=== PATIENT | female | born 1970 | race Two or more races ===

== ENCOUNTER 2024-11-11 10:52 | Emergency (ER) | payer SELFPAY ==
[2024-11-11 10:54] VITALS: BMI 32.0
[2024-11-11 11:08] VITALS: BP 161/100; PULSE 112; RESP 20; TEMP 37.8; O2SAT 98
--- NOTE | 2024-11-11 11:14 | XR_ITS ---
Examination: CT abdomen and pelvis without contrast. Coronal 3-D reconstructions. Sagittal 2-D reconstructions. Date and time of exam:25, 1133 hrs. Indications: Left flank pain 5 days, painful urination 2 days. CTDI: vol (mGy): 10.5. DLP: (mGycm): 584. Technique: Axial images of the abdomen have been obtained, 3 mm slice thickness Intravenous contrast material has not been administered. Low dose protocols were performed. One or more of the following dose reduction techniques were used; automated exposure control, adjustment of the mA and/or KV according to patient size, use of iterative reconstruction technique. Findings: Diffuse fatty infiltration throughout the liver, moderate hepatomegaly. Gallstones, gallbladder wall does not appear thickened Spleen is not enlarged. No pancreatic or adrenal mass. Minimal left hydronephrosis, no ureteral calculi Aorta normal size. Normal appendix No pelvic mass Urinary bladder wall thickening up to 5 mm Impression: Findings most consistent with left pyelonephritis and cystitis
--- NOTE | 2024-11-11 11:15 | EDRME_ITS ---
Rapid Medical Screening Exam RME Arrival date/time: 11/11/24 10:52 54-year-old female with no known medical history presents to the emergency room with a chief complaint of fever, vomiting, left-sided flank pain and dysuria x 5 days I have greeted and performed a focused initial assessment of this patient. A com prehensive ED assessment and evaluation of the patient, analysis of all test results, and completion of the medical decision making process will be conducted by additional ED providers. Chief Complaint: General Adult/Misc Complain Time Seen by Provider: 11/11/24 11:11 Vital signs: Vital Signs Temperature 100.1 F 11/11/24 11:08 Pulse Rate 112 H 11/11/24 11:08 Respiratory Rate 20 11/11/24 11:08 Blood Pressure 161/100 H 11/11/24 11:08 Pulse Oximetry (%) 98 11/11/24 11:08 Oxygen Delivery Method Room Air 11/11/24 11:08 Vital signs reviewed by provider: Yes
[2024-11-11] MEDS: HYDROcodone/APAP 5/325 TABLET 1 TAB PO (11:21)
[2024-11-11] MEDS: IBUPROFEN TAB 400 MG TABLET 800 MG PO (11:21)
[2024-11-11] MEDS: ONDANSETRON ODT 4 MG TABRAP PO (11:22)
[2024-11-11 12:00] VITALS: BP 160/97; PULSE 107; RESP 17; TEMP 37; O2SAT 96
--- NOTE | 2024-11-11 12:20 | PD.EDABDPN ---
ED Abdominal Pain RME/HPI General Chief Complaint: General Adult/Misc Complain Stated complaint: PAINFUL URINATION, L) FLANK PAIN Time seen by provider: 11/11/24 11:11 Arrival date/time: 11/11/24 10:52 This is a 54-year-old female that comes into the emergency room with complaints of left-sided flank pain that started this morning. Patient also reports that she had a fever last night. Prior to this pain starting patient was having dysuria for the past 5 days. Patient reports a history of diabetes. She only takes metformin for this. Patient also reports history of . Patient denies nausea, vomiting, diarrhea. RME / HPI RME / HPI narrative: 11/11/24 10:52 54-year-old female with no known medical history presents to the emergency room with a chief complaint of fever, vomiting, left-sided flank pain and dysuria x 5 days I have greeted and performed a focused initial assessment of this patient. A comprehensive ED assessment and evaluation of the patient, analysis of all test results, and completion of the medical decision making process will be conducted by additional ED providers. Related Data Previous Rx's ?Medication ?Instructions ?Recorded ciprofloxacin HCl 500 mg tablet 500 mg PO Q12H 7 days #14 tabs 11/11/24 ibuprofen 800 mg tablet 800 mg PO Q6H PRN pain #14 tabs 11/11/24 Allergies Allergy/AdvReac Type Severity Reaction Status Date / Time Penicillins Allergy Intermediate Rash Verified 11/11/24 10:59 Review of Systems Review of Systems Systems Reviewed: All systems reviewed, normal except as documented Past Medical History Past Medical History Comments PMH COMMENT: denies ED Exam Narrative Physical exam: VITAL SIGNS: Reviewed. GENERAL APPEARANCE: Alert and interactive, follows commands, no acute distress, HEAD AND FACE: Non-traumatic. ENT: PERRL, conjuctiva pink and clear, eyelid no trauma, Mucous membrane moist. NECK: Supple, nontender, no nuchal rigidity. CHEST: No tenderness, no crepitus, no paradoxical movement, no retractions. LUNGS: Clear, well ventilated, symmetric, no rales, no wheezing, no rhonchi, no stridor, good breath sounds bilaterally. HEART: Regular rate, regular rhythm, no murmur, no gallops. ABDOMEN: Soft, nondistended, no guarding, nontender, no cva tenderness NEUROLOGICAL: Gross motor function intact sensory function intact, Appropriate for age. MUSCULOSKELETAL: low back nontender, full range of motion. EXTREMITIES: No redness no swelling no skin breakdown on bilateral foot and leg. Distal neurovascular status intact bilateral foot SKIN: Color pink, dry, no rash, no lacerations, no abrasions, no contusions. Course Quality Measures none Orders Category Date Time Status CT abdomen pelvis wo con Stat Exams 11/11/24 11:14 Completed Blood Culture (Lab) Stat Lab 11/11/24 12:14 Received CBC Stat Lab 11/11/24 12:14 Completed CMP [Comprehensive Metabolic Panel] Stat Lab 11/11/24 12:14 Completed HCG Qualitative,Urine Stat Lab 11/11/24 12:14 Completed Lactate (Lactic Acid) Stat Lab 11/11/24 12:14 Completed Lipase Stat Lab 11/11/24 12:14 Completed Procalcitonin Stat Lab 11/11/24 12:14 Completed UA [Urinalysis] Stat Lab 11/11/24 12:14 Completed Urine Culture Stat Lab 11/11/24 12:14 Received HYDROcodone*/APAP 5/325 [[place] 5/325] Med 11/11/24 11:14 Discontinued 1 tab PO X1 ONE Ibuprofen Tab [Motrin Tab] Med 11/11/24 11:15 Discontinued 800 mg PO X1 ONE Insulin Regular Med 11/11/24 13:36 Discontinued 5 unit SC X1 ONE Ondansetron Odt [Zofran Odt] Med 11/11/24 11:16 Discontinued 4 mg PO X1 ONE cefTRIAXone [Rocephin] 1,000 mg Med 11/11/24 13:13 Discontinued Lidocaine 1% 20 ml [Xylocaine 1% 20 ML] 2.1 ml IM X1 Vital Signs Vital signs: Vital Signs Temperature 100.1 F 11/11/24 11:08 Pulse Rate 112 H 11/11/24 11:08 Respiratory Rate 20 11/11/24 11:08 Blood Pressure 161/100 H 11/11/24 11:08 Pulse Oximetry (%) 98 11/11/24 11:08 Oxygen Delivery Method Room Air 11/11/24 11:08 Abdominal Pain MDM MDM Narrative MDM Narrative:: Labs reviewed. Patient is well and is 19.6. patient is BMP showed a glucose of 366/. Lactic acid 1.3 procalcitonin 0.08 lipase 29 kidney function essentially unremarkable. patient with AST and ALT are within normal limits but alk phos is 181. I told patient to have this rechecked. With her primary doctor. Patient told glucose is slightly elevated. I will give patient 5 units of insulin. Patient only takes metformin at home for glucose control. Patient feeling better overall. Patient feels comfortable going home at this time. Explained to patient at length importance of follow-up with primary provider. Patient verbalized understanding. Findings: Diffuse fatty infiltration throughout the liver, moderate hepatomegaly. Gallstones, gallbladder wall does not appear thickened Spleen is not enlarged. No pancreatic or adrenal mass. Minimal left hydronephrosis, no ureteral calculi Aorta normal size. Normal appendix No pelvic mass Urinary bladder wall thickening up to 5 mm Impression: Findings most consistent with left pyelonephritis and cystitis Rachelleon dictation: Although this document has been carefully reviewed, there may still be some phonetic and other typographical errors. These errors are purely grammatical due to imperfections in the software program and should not be construed in any way to compromise the substance of the patient's medical care during this visit. Patient data External records reviewed:: [facility] previous records Clinical information provided by:: patient Social determinants that could affect healthcare access:: none Patient has the following chronic illnesses:: diabetes How is presenting disease/condition affected by chronic disease/condition?: uneffected by Evaluation data The following diagnostics were reviewed and interpreted by me:: lab results and radiology exam(s) Lab and/or radiology exams considered but not ordered:: none Interpretation Summary: see note Medications / Prescriptions Medications or Prescriptions considered but not ordered:: none Medication administrations:: Medication Administration History Discontinued Medications Hydrocodone Bitart/Acetaminophen (Hydrocodone/Apap 5/325 Tablet) 1 tab PO X1 ONE Stop: 11/11/24 11:15 Last Admin: 11/11/24 11:21 Dose: 1 tab Documented By: DB Ceftriaxone Sodium 1,000 mg/ (Lidocaine HCl 2.1 ml) 0 mg IM X1 ONE Stop: 11/11/24 13:14 Last Admin: 11/11/24 13:34 Dose: 1,000 mg Documented By: EF Ibuprofen (Ibuprofen Tab 400 Mg Tablet) 800 mg PO X1 ONE Stop: 11/11/24 11:16 Last Admin: 11/11/24 11:21 Dose: 800 mg Documented By: DB Insulin Human Regular (Insulin Hum Regular 1 Unit/0.01 Ml (Per Unit)) 5 unit SC X1 ONE Stop: 11/11/24 13:37 Last Admin: 11/11/24 13:55 Dose: 5 unit Documented By: EF Co-signed By: DO Ondansetron HCl (Ondansetron Odt 4 Mg Tabrap) 4 mg PO X1 ONE; Protocol Stop: 11/11/24 11:17 Last Admin: 11/11/24 11:22 Dose: 4 mg Documented By: DB see mar Consultations Consultation(s) initiated? (list below): No Diagnosis Differential diagnosis abdominal pain: abdominal pain, acute appendicitis, calculus of kidney and other (pyelonephritis ) Most likely diagnosis given after review of the tests above:: Pyelonephritis Admission Indicated Admission indicated?: not indicated Admission Request Was there a request for admission?: No Disposition Plan Disposition Plan: Discharge Discharge Attestation Discharge Attestation: The patient and all family members were given an opportunity to ask questions and understood the discharge instructions. Discharge instructions specifically effects, indications for sooner follow up or return to the emergency department, and the expected course of current diagnosis. Patient condition: Stable Discharge Plan Plan Patient Disposition: HOME (Self Care) Patient condition on transfer: Stable Prescriptions/Referrals Prescriptions/Med Rec: New ibuprofen 800 mg tablet 800 mg PO Q6H PRN (Reason: pain) Qty: 14 0RF ciprofloxacin HCl 500 mg tablet 500 mg PO Q12H 7 Days Qty: 14 0RF Referrals: No Primary/Family,Physician [Primary Care Provider] - In 1 week Problem List Clinical Impression: Pyelonephritis, Alkaline phosphatase elevation, Hyperglycemia Patient/Caregiver Discharge Instructions Discharge Activity: activity as tolerated Education Materials: ED Pyelonephritis, Female (Adult) Additional Instructions: Follow up with primary provider in 1-2 days. Come back to ED if symptoms change or worsen. Print Language: Faroese Stand Alone Forms: [employer] Award Info., Patient Portal Info Letter PA/[employer] Supervising Physician NINFA/RICK Supervising Physician: karen
[2024-11-11 12:25] LABS: Collection Type, Urine Clean Catch; Squamous Epithelial Cell,Urine 0 /hpf (0-5)
[2024-11-11 12:26] LABS: Lactate (Lactic Acid) 1.3 mMol/L (0.4-2.0)
[2024-11-11 12:35] LABS: Basophils # (Auto) 0.1 Thou/mm3 (0.0-0.2); Basophils % (Auto) 0 % (0-2.5); Eosinophils # (Auto) 0.0 Thou/mm3 (0.0-0.5); Eosinophils % (Auto) 0 % (0-10); Hematocrit 43.1 % (36.0-46.0); Hemoglobin 15.3 g/dL (12.0-16.0); Immature Granulocytes Auto 0.10 Thou/mm3 (0.00-0.00); Lymphocytes # (Auto) 1.9 Thou/mm3 (1.0-4.8); Lymphocytes % (Auto) 10 % (10-50); Mean Corpuscular HGB Conc 35.5 g/dl (31.0-37.0); Mean Corpuscular Hemoglobin 29.9 pg (25.0-35.0); Mean Corpuscular Volume 84 fL (80-100); Monocytes # (Auto) 1.2 Thou/mm3 (0.0-0.8); Monocytes % (Auto) 6 % (0-12); Neutrophils # (Auto) 16.2 Thou/mm3 (1.8-7.7); Neutrophils % (Auto) 83 % (37-80); Nucleated Red Blood Cell # 0.00 Thou/mm3 (0.00-0.00); Nucleated Red Blood Cell % 0 /100 WBC (0); Platelet Count 306 Thou/mm3 (140-440); RDW Standard Deviation 35.3 fL (36.4-46.3); Red Blood Count 5.11 Miln/mm3 (4.00-5.20); White Blood Count 19.6 Thou/mm3 (3.6-11.0)
[2024-11-11 12:50] LABS: Bacteria,Urine 2+; Bilirubin,Urine Negative (Negative); Blood,Urine 3+ (Negative); Color,Urine Yellow (Lt Yel-Yel); Glucose, Urine 4+ (Negative); Ketones,Urine 2+ (Negative); Leukocyte Esterase,Urine Positive (Negative); Nitrite,Urine Positive (Negative); PH,Urine 6.5 (5.0-7.0); Protein,Urine 2+ (Neg - Trace); RBC,Urine 236 /hpf (0-3); Specific Gravity,Urine 1.041 (1.001-1.035); Transitional Epi Cells,Urine 2 /hpf (0-5); Urobilinogen,Urine Negative mg/dL (0.0-1.0); WBC,Urine 1709 /hpf (0-5)
[2024-11-11 12:56] LABS: HCG Qualitative,Urine Negative
[2024-11-11 12:57] LABS: Clarity,Urine Turbid (Clear/Hazy)
[2024-11-11 13:19] LABS: Alanine Aminotransferase 48 U/L (10-49); Albumin, Serum 4.2 gm/dL (3.5-5.0); Albumin/Globulin Ratio 1.4 (1.2-2.2); Alkaline Phosphatase 191 U/L (46-116); Anion Gap 13 (7-16); Aspartate Amino Transferase 22 U/L (0-34); BUN/Creatinine Ratio 22 Ratio (12-20); Bilirubin,Total 0.8 mg/dL (0.3-1.2); Blood Urea Nitrogen 13 mg/dL (9-23); Calcium 9.1 mg/dL (8.3-10.6); Calcium (Corrected) 9.1 mg/dL (8.5-10.1); Carbon Dioxide 22.7 mMol/L (20.0-31.0); Chloride 102 mMol/L (98-107); Creatinine (Component) 0.6 mg/dL (0.6-1.3); Estimated Creatinine Clearance 107.0 mL/min (>60); Globulin 2.9 gm/dL (2.3-3.5); Glucose 366 mg/dL (74-106); Lipase 29 U/L (12-53); Osmolality,Calculated 290 (275-295); Potassium 3.8 mMol/L (3.4-5.1); Procalcitonin 0.08 ng/ml (0.0-0.49); Sodium 138 mMol/L (136-145); Total Protein 7.1 gm/dL (5.7-8.2); eGFR > 60 See Note
[2024-11-11] MEDS: cefTRIAXone 1,000 MG, LIDOCAINE 1% 20 ML 2.1 ML IM (13:34)
[2024-11-11] MEDS: INSULIN HUM REGULAR 1 UNIT/0.01 ML (PER UNIT) 5 UNIT SC (13:55)
[2024-11-11 14:13] VITALS: BP 136/82; PULSE 95; RESP 18; TEMP 37.1; O2SAT 95
[2024-11-11 15:31] VITALS: BP 145/75; PULSE 94; RESP 16; O2SAT 96
== END 2024-11-11 15:32 | disposition home or self-care (01) ==
PROVIDERS: Nurse Practitioner Family; Emergency Provider Family Medicine
DX: N12 Tubulo-interstitial nephritis, not specified as acute or chronic (principal); N30.90 Cystitis, unspecified without hematuria; E11.65 Type 2 diabetes mellitus with hyperglycemia; R74.8 Abnormal levels of other serum enzymes; Z79.84 Long term (current) use of oral hypoglycemic drugs
CPT/HCPCS: 36415; 74176; 80053; 81001; 81025; 83605; 83690; 84145; 85025; 87040; 87077; 87086; 87186; 96372; 99283; J0696; J1815; J3490; Q0162; A9270

== ENCOUNTER 2024-11-12 11:12 | Emergency (ER) | payer OTHER, SELFPAY ==
[2024-11-12 11:15] VITALS: BMI 30.2
[2024-11-12 11:21] VITALS: BP 173/105; PULSE 99; RESP 19; TEMP 37.1; O2SAT 97
--- NOTE | 2024-11-12 11:30 | PD.EDRME ---
Rapid Medical Screening Exam E Arrival date/time: 11/12/24 11:12 54-year-old female with no known medical history presents to the emergency room with a chief complaint of 10 out of 10 left-sided flank pain. Patient was seen here yesterday and discharged and states her pain has progressively gotten worse and she has not vomiting. I have greeted and performed a focused initial assessment of this patient. A comprehensive ED assessment and evaluation of the patient, analysis of all test results, and completion of the medical decision making process will be conducted by additional ED providers. Chief Complaint: Back Pain/Injury Time Seen by Provider: 11/12/24 11:16 Vital signs: Vital Signs Temperature 98.7 F 11/12/24 11:21 Pulse Rate 99 11/12/24 11:21 Respiratory Rate 19 11/12/24 11:21 Blood Pressure 173/105 H 11/12/24 11:21 Pulse Oximetry (%) 97 11/12/24 11:21 Oxygen Delivery Method Room Air 11/12/24 11:21 Vital signs reviewed by provider: Yes
[2024-11-12] MEDS: ONDANSETRON ODT 4 MG TABRAP PO (11:35)
[2024-11-12] MEDS: KETOROLAC INJ 60 MG/2 ML VIAL 30 MG IM (11:36)
[2024-11-12 12:16] LABS: Basophils # (Auto) 0.1 Thou/mm3 (0.0-0.2); Basophils % (Auto) 0 % (0-2.5); Eosinophils # (Auto) 0.0 Thou/mm3 (0.0-0.5); Eosinophils % (Auto) 0 % (0-10); Hematocrit 43.4 % (36.0-46.0); Hemoglobin 15.4 g/dL (12.0-16.0); Immature Granulocytes Auto 0.16 Thou/mm3 (0.00-0.00); Lymphocytes # (Auto) 1.6 Thou/mm3 (1.0-4.8); Lymphocytes % (Auto) 9 % (10-50); Mean Corpuscular HGB Conc 35.5 g/dl (31.0-37.0); Mean Corpuscular Hemoglobin 30.1 pg (25.0-35.0); Mean Corpuscular Volume 85 fL (80-100); Monocytes # (Auto) 0.8 Thou/mm3 (0.0-0.8); Monocytes % (Auto) 4 % (0-12); Neutrophils # (Auto) 15.6 Thou/mm3 (1.8-7.7); Neutrophils % (Auto) 86 % (37-80); Nucleated Red Blood Cell # 0.00 Thou/mm3 (0.00-0.00); Nucleated Red Blood Cell % 0 /100 WBC (0); Platelet Count 285 Thou/mm3 (140-440); RDW Standard Deviation 35.6 fL (36.4-46.3); Red Blood Count 5.11 Miln/mm3 (4.00-5.20); White Blood Count 18.1 Thou/mm3 (3.6-11.0)
[2024-11-12 12:45] LABS: Alanine Aminotransferase 48 U/L (10-49); Albumin, Serum 4.3 gm/dL (3.5-5.0); Albumin/Globulin Ratio 1.4 (1.2-2.2); Alkaline Phosphatase 190 U/L (46-116); Anion Gap 11 (7-16); Aspartate Amino Transferase 28 U/L (0-34); BUN/Creatinine Ratio 19 Ratio (12-20); Bilirubin,Total 0.8 mg/dL (0.3-1.2); Blood Urea Nitrogen 15 mg/dL (9-23); Calcium 9.2 mg/dL (8.3-10.6); Calcium (Corrected) 9.2 mg/dL (8.5-10.1); Carbon Dioxide 23.9 mMol/L (20.0-31.0); Chloride 100 mMol/L (98-107); Creatinine (Component) 0.8 mg/dL (0.6-1.3); Estimated Creatinine Clearance 77.9 mL/min (>60); Globulin 3.1 gm/dL (2.3-3.5); Glucose 355 mg/dL (74-106); Lipase 26 U/L (12-53); Osmolality,Calculated 284 (275-295); Potassium 4.1 mMol/L (3.4-5.1); Sodium 135 mMol/L (136-145); Total Protein 7.4 gm/dL (5.7-8.2); eGFR > 60 See Note
--- NOTE | 2024-11-12 14:05 | PC.NURSE ---
CALLED PT IN LOBBY AND OUTSIDE; NO ANSWER.
--- NOTE | 2024-11-12 14:15 | PC.NURSE ---
CALLED PT IN LOBBY AND OUTSIDE; NO ANSWER.
[2024-11-12 14:28] VITALS: BP 130/84; PULSE 97; RESP 16; TEMP 37; O2SAT 96
--- NOTE | 2024-11-12 14:37 | EDNOTE_ITS ---
<Statement entered by Lynn Roche MD - 11/13/24 06:44> As co-signing physician, I was present and available for consult prn. I concur with the plan and care as documented by the midlevel provider. ED General RME/HPI General Chief complaint: Back Pain/Injury Stated complaint: L) LOWER BACK PAIN, 01/18 Time Seen by Provider: 11/12/24 11:16 Arrival date/time: 11/12/24 11:12 CC: Left flank pain HPI patient was seen here yesterday diagnosed with pyelonephritis denies any fever nausea at this time. However patient states this morning she was mildly nauseated and threw up her pain medications which caused the pain to return. Patient denies any fever at this time at the time of the assessment at 1439 the patient had a received injection for pain and she is completely pain-free afebrile nontoxic-appearing not in any acute distress does not want to be admitted to the hospital but wants to go home. RME / HPI RME / HPI narrative: 11/12/24 11:12 54-year-old female with no known medical history presents to the emergency room with a chief complaint of 10 out of 10 left-sided flank pain. Patient was seen here yesterday and discharged and states her pain has progressively gotten worse and she has not vomiting. I have greeted and performed a focused initial assessment of this patient. A comprehensive ED assessment and evaluation of the patient, analysis of all test results, and completion of the medical decision making process will be conducted by additional ED providers. Related Data Previous Rx's ?Medication ?Instructions ?Recorded ciprofloxacin HCl 500 mg tablet 500 mg PO Q12H 7 days #14 tabs 11/11/24 ibuprofen 800 mg tablet 800 mg PO Q6H PRN pain #14 t abs 11/11/24 ondansetron 4 mg disintegrating 4 mg PO Q8H #10 tabs 0 11/12/24 tablet Allergies Allergy/AdvReac Type Severity Reaction Status Date / Time Penicillins Allergy Intermediate Rash Verified 11/12/24 11:18 Review of Systems Review of Systems Narrative Review of Systems: GEN: No fever, no chills, no weight loss EYES: No discharge, no visual changes, no pain HEENT: No ear pain, no congestion, no sore throat PULM: No shortness of breath, no cough, no congestion CV: No chest pain, no dyspnea on exertion, no palpitations GI: No nausea, no vomiting, no diarrhea, no pain, no constipation : No frequency, no urgency, no dysuria MUSC/SKEL: No joint pain, no back pain, + flank pain SKIN: No rash PSYCH: No hallucinations, no depression HEME/LYMPH: No easy bleeding or bruising tendencies NEURO: No weakness, no headache Past Medical History Past Medical History CARDIAC: Negative Congestive Heart Failure RESPIRATORY: Negative Chronic Obstructive Pulmonary Disease (COPD) GENITOURINARY: Negative Renal Disease ENDOCRINE: Positive Diabetes Mellitus Type 2; Negative Diabetes Mellitus Type 1 Surgical History SURGICAL: Positive Section Social History SMOKING STATUS: Never smoker ED Exam Narrative Physical exam: [General: Obese not in any acute distress Head normocephalic HEENT: Within acceptable limits Neck is supple nontender Chest equal chest rise nontender to palpation Respiratory: Clear to auscultation no wheezes crackles or rubs CV: Rate rhythm is regular no murmurs rubs or clicks Abdomen is distended secondary to body habitus soft nontender no masses positive bowel sounds all 4 quadrants Back: No CVA tenderness no spinous process tenderness from cervical spine thoracic and lumbar spine Skin: Intact no petechiae rash induration ulceration or crepitus Extremities: Moving all extremity against resistance cap refill less than 2 seconds neurosensory intact Neuro: Awake alert oriented x3 Glascow coma 15 no focal deficits] Course Quality Measures none Orders Category Date Time Status CBC Stat Lab 11/12/24 11:53 Completed CMP [Comprehensive Metabolic Panel] Stat Lab 11/12/24 11:53 Completed HCG Qualitative,Urine Stat Lab 11/12/24 14:32 Completed Lipase Stat Lab 11/12/24 11:53 Completed UA [Urinalysis] Stat Lab 11/12/24 14:32 Completed Urine Culture Stat Lab 11/12/24 14:32 Received Insulin Regular Med 11/12/24 14:52 Discontinued 5 unit SC X1 ONE Insulin Regular Med 11/12/24 14:41 Discontinued 7.5 unit IV X1 ONE Ketorolac Inj [Toradol Inj] Med 11/12/24 11:29 Discontinued 30 mg IM X1 ONE Ondansetron Odt [Zofran Odt] Med 11/12/24 11:30 Discontinued 4 mg PO X1 ONE cefTRIAXone [Rocephin] 1,000 mg Med 11/12/24 14:37 Discontinued Lidocaine 1% 20 ml [Xylocaine 1% 20 ML] 2.1 ml IM X1 Vital Signs Vital signs: Vital Signs Temperature 98.7 F 11/12/24 11:21 Pulse Rate 99 11/12/24 11:21 Respiratory Rate 19 11/12/24 11:21 Blood Pressure 173/105 H 11/12/24 11:21 Pulse Oximetry (%) 97 11/12/24 11:21 Oxygen Delivery Method Room Air 11/12/24 11:21 Discharge Plan Plan Patient Disposition: HOME (Self Care) Patient condition on transfer: Stable Prescriptions/Referrals Prescriptions/Med Rec: New ondansetron 4 mg tablet,disintegrating 4 mg PO Q8H Qty: 10 0RF No Action ibuprofen 800 mg tablet 800 mg PO Q6H PRN (Reason: pain) Qty: 14 0RF ciprofloxacin HCl 500 mg tablet 500 mg PO Q12H 7 Days Qty: 14 0RF Referrals: Jasiel Smith MD [Physician] - In 1 week No Primary/Family,Physician [Primary Care Provider] - In 1 week Problem List Clinical Impression: Pyelonephritis, Hyperglycemia Patient/Caregiver Discharge Instructions Education Materials: High Blood Sugar (Hyperglycemia), ED Pyelonephritis, Female (Adult) Additional Instructions: Take all medications as prescribed, use the nausea medicine 15 minutes before you take your pain medication and antibiotics. Make sure your blood sugars stay below 200. Return in 2 days as discussed for reassessment. Print Language: Danish Stand Alone Forms: [employer] Award Info., Work/School Release, Patient Portal Info Letter NINFA/RICK Supervising Physician PA/RICK Supervising Physician: Timur Sena ENP [facility] Clinical Information Provided by patient Medical Records Reviewed [facility] Patient was seen here yesterday CT confirms pyelonephritis left kidney 19,000 white count no documented fever. Meds/Rx Considered, not Ordered None Labs/Rad/Tests considered, not Ordered None Chronic Illness/Social Conditions which may negatively complicate care or outcome(s)-explain: None or not applicable EKG EKG not done Lab Interpretation Labs: interpreted by nm Lab(s) interpretation(s): CBC shows leukocytosis of 18.1 no anemia thrombocytopenia CMP shows a sodium of 135 and glucose of 355 alk phos of 190 no other transaminitis or T. bili elevation Lipase of 26. Imaging Imaging interpretation: none Medication Administration(s) Medication Administration History Discontinued Medications Ceftriaxone Sodium 1,000 mg/ (Lidocaine HCl 2.1 ml) 0 mg IM X1 ONE Stop: 11/12/24 14:38 Last Admin: 11/12/24 15:04 Dose: 1,000 mg Documented By: Insulin Human Regular (Insulin Hum Regular 1 Unit/0.01 Ml (Per Unit)) 7.5 unit 0.1 unit/kg (7.5 unit) IV X1 ONE Stop: 11/12/24 14:42 Last Admin: 11/12/24 14:53 Dose: Not Given Documented By: Non-Admin Reason: Cancelled by Provider Insulin Human Regular (Insulin Hum Regular 1 Unit/0.01 Ml (Per Unit)) 5 unit SC X1 ONE Stop: 11/12/24 14:53 Last Admin: 11/12/24 15:01 Dose: 5 unit Documented By: Co-signed By: VICKY Ketorolac Tromethamine (Ketorolac Inj 60 Mg/2 Ml Vial) 30 mg IM X1 ONE Stop: 11/12/24 11:30 Last Admin: 11/12/24 11:36 Dose: 30 mg Documented By: Ondansetron HCl (Ondansetron Odt 4 Mg Tabrap) 4 mg PO X1 ONE; Protocol Stop: 11/12/24 11:31 Last Admin: 11/12/24 11:35 Dose: 4 mg Documented By: Diagnosis Differential diagnosis: Pyelonephritis UTI hyperglycemia Most likely dx, and/or detailed dx discussion: Patient is refusing admission at this time patient will be given subcu insulin and IM Rocephin and she is to continue on her oral antibiotics and pain medication. We will add nausea medication to avoid nausea vomiting during oral administration. Patient is advised to return in 2 days for recheck. Dispositon Disposition: Discharge Home
[2024-11-12 14:41] LABS: Collection Type, Urine Clean Catch
[2024-11-12 14:56] LABS: HCG Qualitative,Urine Negative
[2024-11-12 15:01] LABS: Bacteria,Urine 1+; Bilirubin,Urine Negative (Negative); Blood,Urine 3+ (Negative); Clarity,Urine Turbid (Clear/Hazy); Color,Urine Yellow (Lt Yel-Yel); Glucose, Urine 4+ (Negative); Ketones,Urine 3+ (Negative); Leukocyte Esterase,Urine Positive (Negative); Nitrite,Urine Negative (Negative); PH,Urine 6.0 (5.0-7.0); Protein,Urine 1+ (Neg - Trace); RBC,Urine 213 /hpf (0-3); Specific Gravity,Urine 1.040 (1.001-1.035); Squamous Epithelial Cell,Urine 4 /hpf (0-5); Urobilinogen,Urine Negative mg/dL (0.0-1.0); WBC,Urine 574 /hpf (0-5)
[2024-11-12] MEDS: INSULIN HUM REGULAR 1 UNIT/0.01 ML (PER UNIT) 5 UNIT SC (15:01)
[2024-11-12] MEDS: cefTRIAXone 1,000 MG, LIDOCAINE 1% 20 ML 2.1 ML IM (15:04)
== END 2024-11-12 15:12 | disposition home or self-care (01) ==
PROVIDERS: Nurse Practitioner Family; Emergency Provider Emergency Medicine
DX: N12 Tubulo-interstitial nephritis, not specified as acute or chronic (principal); R73.9 Hyperglycemia, unspecified
CPT/HCPCS: 36415; 80053; 81001; 81025; 83690; 85025; 87086; 96372; 99283; J0696; J1815; J1885; J3490; Q0162

== ENCOUNTER 2024-11-13 07:26 | Emergency (ER) | payer SELFPAY ==
[2024-11-13 07:29] VITALS: BMI 41.5
[2024-11-13 07:42] VITALS: BP 123/79; PULSE 86; RESP 17; TEMP 37.1; O2SAT 97
--- NOTE | 2024-11-13 07:51 | PD.EDRME ---
Rapid Medical Screening Exam RME Arrival date/time: 11/13/24 07:26 Chief Complaint: General Adult/Misc Complain Vital signs: Vital Signs Temperature 98.7 F 11/13/24 07:42 Pulse Rate 86 11/13/24 07:42 Respiratory Rate 17 11/13/24 07:42 Blood Pressure 123/79 11/13/24 07:42 Pulse Oximetry (%) 97 11/13/24 07:42 Oxygen Delivery Method Room Air 11/13/24 07:42 Pulse ox room air 97% Vital signs reviewed by provider: Yes RME Narrative: Patient returns for her third visit complaining of left flank pain. Patient had been seen twice before for hyperglycemia and elevated alkaline phos.
[2024-11-13 08:16] LABS: Basophils # (Auto) 0.1 Thou/mm3 (0.0-0.2); Basophils % (Auto) 0 % (0-2.5); Eosinophils # (Auto) 0.1 Thou/mm3 (0.0-0.5); Eosinophils % (Auto) 1 % (0-10); Hematocrit 41.0 % (36.0-46.0); Hemoglobin 14.6 g/dL (12.0-16.0); Immature Granulocytes Auto 0.07 Thou/mm3 (0.00-0.00); Lymphocytes # (Auto) 2.3 Thou/mm3 (1.0-4.8); Lymphocytes % (Auto) 16 % (10-50); Mean Corpuscular HGB Conc 35.6 g/dl (31.0-37.0); Mean Corpuscular Hemoglobin 30.3 pg (25.0-35.0); Mean Corpuscular Volume 85 fL (80-100); Monocytes # (Auto) 0.9 Thou/mm3 (0.0-0.8); Monocytes % (Auto) 6 % (0-12); Neutrophils # (Auto) 10.9 Thou/mm3 (1.8-7.7); Neutrophils % (Auto) 76 % (37-80); Nucleated Red Blood Cell # 0.00 Thou/mm3 (0.00-0.00); Nucleated Red Blood Cell % 0 /100 WBC (0); Platelet Count 283 Thou/mm3 (140-440); RDW Standard Deviation 35.7 fL (36.4-46.3); Red Blood Count 4.82 Miln/mm3 (4.00-5.20); White Blood Count 14.3 Thou/mm3 (3.6-11.0)
--- NOTE | 2024-11-13 08:35 | PD.EDFMALE ---
ED Female Urogenital RME/HPI General Chief complaint: General Adult/Misc Complain Stated complaint: L) RIB PAIN, 01/18 Time Seen by Provider: 11/13/24 08:27 Arrival date/time: 11/13/24 07:26 RME / HPI RME / HPI Narrative: Patient returns for her third visit complaining of left flank pain. Patient had been seen twice before for hyperglycemia and elevated alkaline phos. DR. DOSS MAIN ED EVALUATION 54 year old female patient presents to the ED with worsening left flank pain. She was previously evaluated here 3 days ago for similar symptoms, diagnosed with pyelonephritis, and treated with antibiotics and pain medication in the ED. Her symptoms improved initially, but the pain recurred 24 hours later, prompting another ED visit yesterday, where she received the same treatment. States again she experienced transient improvement and pain returned this morning. The patient denies any associated fevers, chills, chest pain, cough, shortness of breath, nausea, vomiting, diarrhea, or constipation. Related Data Previous Rx's ?Medication ?Instructions ?Recorded ciprofloxacin HCl 500 mg tablet 500 mg PO Q12H 7 days #14 tabs 11/11/24 ibuprofen 800 mg tablet 800 mg PO Q6H PRN pain #14 tabs 11/11/24 ondansetron 4 mg disintegrating 4 mg PO Q8H #10 tabs 11/12/24 tablet sulfamethoxazole 800 1 tab PO BID #20 tabs 11/13/24 mg-trimethoprim 160 mg tablet (Bactrim DS) Allergies Allergy/AdvReac Type Severity Reaction Status Date / Time Penicillins Allergy Intermediate Rash Verified 11/13/24 07:31 Review of Systems Review of Systems Systems Reviewed: All systems reviewed, normal except as documented Past Medical History Past Medical History CARDIAC: Negative Congestive Heart Failure RESPIRATORY: Negative Chronic Obstructive Pulmonary Disease (COPD) GENITOURINARY: Negative Renal Disease ENDOCRINE: Positive Diabetes Mellitus Type 2; Negative Diabetes Mellitus Type 1 Surgical History SURGICAL: Positive Section Social History SMOKING STATUS: Never smoker ED Exam Narrative Physical exam: GENERAL APPEARANCE: alert and oriented x 4, well-developed, well-nourished, no acute distress HEENT: Normocephalic, atraumatic; pupils equal, round, reactive to light; EOMI; mucous membranes pink, moist; oropharynx clear NECK: Supple LUNGS: CTABL; no wheezes, no rales, no rhonchi HEART: Regular rate, regular rhythm; normal S1, S2; no murmurs ABDOMEN: non distended; normal BS; soft, no tenderness, no guarding, no rebound; no masses, no organomegaly, no hernia BACK: no CVA tenderness EXTREMITIES: atraumatic; no edema NEUROLOGIC: awake; alert and oriented x4; cranial nerves II-XII grossly intact; no focal sensory or motor deficits PSYCHIATRIC: appropriate mood and affect SKIN: warm, dry, normal color; no rashes Course Course Course Narrative: Patient remains clinically stable throughout the emergency department visit. We reviewed all the results, analysis, and treatment plans. Patient is amenable to discharge. Strict return precautions were outlined. Patient was discharged in stable condition. Quality Measures none Orders Category Date Time Status CBC Stat Lab 11/13/24 07:59 Completed Comprehensive Metabolic Panel Stat Lab 11/13/24 07:59 Completed Lipase Stat Lab 11/13/24 07:59 Completed Urinalysis Stat Lab 11/13/24 08:35 Completed Ketorolac Inj [Toradol Inj] Med 11/13/24 08:30 Discontinued 15 mg IVP X1 ONE Morphine Inj Med 11/13/24 08:29 Discontinued 5 mg IVP X1 ONE Ondansetron Inj [Zofran Inj] Med 11/13/24 08:29 Discontinued 4 mg IVP X1 ONE Sodium Chloride 0.9% 1000 ml [Ns] 1,000 ml Med 11/13/24 08:29 Discontinued IV 999 mls/hr cefTRIAXone/D5w 1gm IV premix [Rocephin/D5w 1gm IV Med 11/13/24 08:28 Discontinued premix] 1 gm in 50 ml IV X1 Vital Signs Vital signs: Vital Signs Temperature 98.7 F 11/13/24 07:42 Pulse Rate 86 11/13/24 07:42 Respiratory Rate 17 11/13/24 07:42 Blood Pressure 123/79 11/13/24 07:42 Pulse Oximetry (%) 97 11/13/24 07:42 Oxygen Delivery Method Room Air 11/13/24 07:42 Pulse ox is 97% on room air which is adequate. Urogenital - Female MDM Narrative MDM Narrative:: Sarah Teixeira am scribing for and in the presence of Dr. Doss. Patient data External records reviewed:: [facility] previous records (I reviewed ED visits on 11/12/2024 and 11/11/2024. I reviewed the urine culture from 11/11/2024 that was positive for E. Coli and intermediate to ciprofloxacin, resistant to first generation cephalosporins) Clinical information provided by:: patient Social determinants that could affect healthcare access:: none Patient has the following chronic illnesses:: No chronic medical hx reported Patient diagnosed with pyelonephritis 2 days ago How is presenting disease/condition affected by chronic disease/condition?: no chronic disease Evaluation data The following diagnostics were reviewed and interpreted by me:: lab results Lab and/or radiology exams considered but not ordered:: None Interpretation Summary: Labs compared to previous two visits (11/11 and 11/12) have improved Medications / Prescriptions Medications or Prescriptions considered but not ordered:: None Medication administrations:: Medication Administration History Discontinued Medications Ceftriaxone Sodium/Dextrose (Rocephin/D5w 1gm Iv Premix) 1 gm in 50 mls @ 100 mls/hr IV X1 ONE Stop: 11/13/24 08:57 Last Infusion: 11/13/24 09:54 Dose: Infused Documented By: Admin: 11/13/24 09:07 Dose: 100 mls/hr Documented By: AMALIA Sodium Chloride (Ns) 1,000 mls @ 999 mls/hr IV .Q1H1M ONE Stop: 11/13/24 09:29 Last Infusion: 11/13/24 10:37 Dose: Infused Documented By: Admin: 11/13/24 09:06 Dose: 999 mls/hr Documented By: AMALIA Ketorolac Tromethamine (Ketorolac Inj 30 Mg/Ml Vial) 15 mg IVP X1 ONE Stop: 11/13/24 08:31 Last Admin: 11/13/24 09:07 Dose: 15 mg Documented By: AMALIA Morphine Sulfate (Morphine Sulf Inj 10 Mg/Ml Vial) 5 mg IVP X1 ONE Stop: 11/13/24 08:30 Last Admin: 11/13/24 09:06 Dose: 5 mg Documented By: AMALIA Ondansetron HCl (Ondansetron Inj 2 Mg/Ml Inj 2 Ml) 4 mg IVP X1 ONE Stop: 11/13/24 08:30 Last Admin: 11/13/24 09:07 Dose: 4 mg Documented By: AMALIA See above Consultations Consultation(s) initiated? (list below): No Diagnosis Urogenital Female Differential Diagnosis: urinary tract infection, cystitis and other (pyelonephritis) Most likely diagnosis given after review of the tests above:: Pyelonephritis Admission Indicated Admission indicated?: not indicated Admission Request Was there a request for admission?: No Disposition Plan Disposition Plan: Discharge Discharge Attestation Discharge Attestation: The patient and all family members were given an opportunity to ask questions and understood the discharge instructions. Discharge instructions specifically effects, indications for sooner follow up or return to the emergency department, and the expected course of current diagnosis. Patient condition: Stable Discharge Plan Plan Patient Disposition: HOME (Self Care) Prescriptions/Referrals Prescriptions/Med Rec: New sulfamethoxazole-trimethoprim [Bactrim DS] 800-160 mg tablet 1 tab PO BID Qty: 20 0RF No Action ibuprofen 800 mg tablet 800 mg PO Q6H PRN (Reason: pain) Qty: 14 0RF ciprofloxacin HCl 500 mg tablet 500 mg PO Q12H 7 Days Qty: 14 0RF ondansetron 4 mg tablet,disintegrating 4 mg PO Q8H Qty: 10 0RF Referrals: No Primary/Family,Physician [Primary Care Provider] - In 1 week Problem List Clinical Impression: Pyelonephritis Patient/Caregiver Discharge Instructions Education Materials: ED Pyelonephritis, Female (Adult) Print Language: Senegalese Stand Alone Forms: [employer] Award Info., Patient Portal Info Letter
[2024-11-13 08:37] LABS: Alanine Aminotransferase 40 U/L (10-49); Albumin, Serum 4.0 gm/dL (3.5-5.0); Albumin/Globulin Ratio 1.3 (1.2-2.2); Alkaline Phosphatase 186 U/L (46-116); Anion Gap 10 (7-16); Aspartate Amino Transferase 21 U/L (0-34); BUN/Creatinine Ratio 30 Ratio (12-20); Bilirubin,Total 0.6 mg/dL (0.3-1.2); Blood Urea Nitrogen 21 mg/dL (9-23); Calcium 9.1 mg/dL (8.3-10.6); Calcium (Corrected) 9.1 mg/dL (8.5-10.1); Carbon Dioxide 25.3 mMol/L (20.0-31.0); Chloride 100 mMol/L (98-107); Creatinine (Component) 0.7 mg/dL (0.6-1.3); Estimated Creatinine Clearance 101.8 mL/min (>60); Globulin 3.1 gm/dL (2.3-3.5); Glucose 341 mg/dL (74-106); Lipase 31 U/L (12-53); Osmolality,Calculated 286 (275-295); Potassium 3.7 mMol/L (3.4-5.1); Sodium 135 mMol/L (136-145); Total Protein 7.1 gm/dL (5.7-8.2); eGFR > 60 See Note
[2024-11-13 08:46] LABS: Collection Type, Urine Clean Catch
[2024-11-13] MEDS: SODIUM CHLORIDE 0.9% 1000 ML 1,000 ML 999 ML IV (09:06)
[2024-11-13] MEDS: MORPHINE SULF INJ 10 MG/ML VIAL 5 MG IVP (09:06)
[2024-11-13] MEDS: ONDANSETRON INJ 2 MG/ML INJ 2 ML 4 MG IVP (09:07)
[2024-11-13] MEDS: KETOROLAC INJ 30 MG/ML VIAL 15 MG IVP (09:07)
[2024-11-13] MEDS: cefTRIAXone/D5w 1gm IV premix 1 GM/50 ML BAG IV (09:07)
[2024-11-13 09:11] LABS: Bilirubin,Urine Negative (Negative); Blood,Urine 3+ (Negative); Color,Urine Yellow (Lt Yel-Yel); Glucose, Urine 4+ (Negative); Ketones,Urine 2+ (Negative); Leukocyte Esterase,Urine Positive (Negative); Nitrite,Urine Negative (Negative); PH,Urine 6.0 (5.0-7.0); Protein,Urine 1+ (Neg - Trace); RBC,Urine 143 /hpf (0-3); Specific Gravity,Urine 1.043 (1.001-1.035); Squamous Epithelial Cell,Urine 7 /hpf (0-5); Urobilinogen,Urine Negative mg/dL (0.0-1.0); WBC,Urine 461 /hpf (0-5)
[2024-11-13 09:23] LABS: Clarity,Urine Hazy (Clear/Hazy)
[2024-11-13 09:54] VITALS: BP 113/51; PULSE 79; RESP 15; TEMP 36.8; O2SAT 99
[2024-11-13 11:42] VITALS: BP 120/79; PULSE 86; RESP 18; TEMP 36.6; O2SAT 96
== END 2024-11-13 11:47 | disposition home or self-care (01) ==
PROVIDERS: Physician Assistant; Emergency Provider Emergency Medicine
DX: N12 Tubulo-interstitial nephritis, not specified as acute or chronic (principal)
CPT/HCPCS: 36415; 80053; 81001; 83690; 85025; 96361; 96365; 96375; 99283; J0696; J1885; J2270; J2405; J7030